=== PATIENT | female | born 1975 | race Caucasian/White ===

== ENCOUNTER 2019-11-03 09:30 | Emergency (ER) | payer OTHER ==
[~2019-11-03] VITALS: Ht 162.6 cm; Wt 59.0 kg
[~2019-11-03 09:30] MED LIST: ALBU90OI INH; AMOX500 PO; CLIN150 PO; CODGUAEL PO; CYCL10 PO; DOXY100 PO; HYDACE5 PO; LIDO700A20 TOP; LORA1 PO; OXYACE7.5T PO; PENVK500 PO; PHENA200 PO; Robaxin-750750 MG PO; SULTRIDS PO
[2019-11-03 10:59] LABS: BASOPHILS ABSOLUTE AUTO 0.08 K/mm3 (0.00-0.23); BASOPHILS PERCENT AUTO 1 % (0-2); EOSINOPHILS ABSOLUTE AUTO 0.14 K/mm3 (0.00-0.68); EOSINOPHILS PERCENT AUTO 2 % (0-6); Hemoglobin 12.5 g/dL (11.5-16.0); IMMATURE GRAN ABSOLUTE AUTO 0.05 K/mm3 (0.00-0.10); IMMATURE GRAN PERCENT AUTO 1 % (0-1); LYMPHOCYTES ABSOLUTE AUTO 2.76 K/mm3 (0.84-5.20); LYMPHOCYTES PERCENT AUTO 31 % (21-46); MONOCYTES PERCENT AUTO 10 % (4-13); Mean Corpuscular HGB 29.1 pg (26.0-34.0); Mean Corpuscular HGB Conc 32.1 g/dL (31.5-36.5); Mean Corpuscular Volume 91 fL (80-100); Mean Platelet Volume 9.9 fL (9.1-12.4); NEUTROPHILS PERCENT AUTO 56 % (41-73); Platelet Count 458 K/mm3 (150-400); RDW Coefficient Variation 14.6 % (11.7-14.2); RDW Standard Deviation 48.6 fL (35.1-46.3); White Blood Cell Count 9.03 K/mm3 (4.00-11.30)
[2019-11-03 11:11] LABS: Alanine Aminotransfer (ALT/SGP 12 U/L (12-78); Albumin/Globulin Ratio 0.7 (0.8-1.8); Alk Phos 139 U/L (50-136); Anion Gap 7 mmol/L (6-16); Aspartate Aminotrans (AST/SGOT 11 U/L (12-37); Bilirubin, Total 0.2 mg/dL (0.1-1.0); Blood Urea Nitrogen 10 mg/dL (8-24); Bun/Creatinine Ratio 16.3 (12.0-20.0); CO2, Blood 25 mmol/L (21-32); Calcium, Blood 8.7 mg/dL (8.5-10.1); Chloride, Blood 107 mmol/L (98-108); Creatinine, Blood 0.62 mg/dL (0.40-1.00); Globulin, Blood 4.1 g/dL (2.2-4.0); Glomerular Filtration Rate >60 (60-); Glucose, Blood 83 mg/dL (70-99); Potassium, Blood 3.8 mmol/L (3.5-5.5); Sodium, Blood 139 mmol/L (136-145); Total Protein, Blood 7.1 g/dL (6.4-8.2); Troponin I <0.015 ng/mL (0.000-0.040)
== END 2019-11-03 16:40 | disposition home or self-care (01) ==
LOC: ER 09:30
PROVIDERS: Emergency Medicine
DX: R07.89 Other chest pain (principal); F17.210 Nicotine dependence, cigarettes, uncomplicated
CPT/HCPCS: 36415; 80053; 84484; 85025; 93005; 93010; 99283-25; J1885

== ENCOUNTER 2019-11-18 10:32 | Emergency (ER) | payer OTHER ==
[~2019-11-18] VITALS: Ht 162.6 cm; Wt 56.7 kg
[2019-11-18 11:07] LABS: BASOPHILS ABSOLUTE AUTO 0.11 K/mm3 (0.00-0.23); BASOPHILS PERCENT AUTO 1 % (0-2); EOSINOPHILS ABSOLUTE AUTO 0.08 K/mm3 (0.00-0.68); EOSINOPHILS PERCENT AUTO 1 % (0-6); Hematocrit 40.6 % (33.0-51.0); Hemoglobin 13.4 g/dL (11.5-16.0); IMMATURE GRAN ABSOLUTE AUTO 0.09 K/mm3 (0.00-0.10); IMMATURE GRAN PERCENT AUTO 1 % (0-1); LYMPHOCYTES ABSOLUTE AUTO 2.96 K/mm3 (0.84-5.20); LYMPHOCYTES PERCENT AUTO 28 % (21-46); MONOCYTES ABSOLUTE AUTO 1.11 K/mm3 (0.16-1.47); MONOCYTES PERCENT AUTO 11 % (4-13); Mean Corpuscular HGB 29.5 pg (26.0-34.0); Mean Corpuscular Volume 89 fL (80-100); NEUTROPHILS ABSOLUTE AUTO 6.21 K/mm3 (1.96-9.15); NEUTROPHILS PERCENT AUTO 59 % (41-73); Platelet Count 470 K/mm3 (150-400); RDW Coefficient Variation 14.5 % (11.7-14.2); Red Blood Cell Count 4.54 M/mm3 (3.80-5.20); White Blood Cell Count 10.56 K/mm3 (4.00-11.30)
[2019-11-18 11:23] LABS: Alanine Aminotransfer (ALT/SGP 18 U/L (12-78); Albumin, Blood 3.8 g/dL (3.4-5.0); Albumin/Globulin Ratio 0.9 (0.8-1.8); Alk Phos 153 U/L (50-136); Anion Gap 5 mmol/L (6-16); Aspartate Aminotrans (AST/SGOT 15 U/L (12-37); Bilirubin, Total 0.3 mg/dL (0.1-1.0); Blood Urea Nitrogen 19 mg/dL (8-24); CO2, Blood 27 mmol/L (21-32); Calcium, Blood 9.5 mg/dL (8.5-10.1); Chloride, Blood 104 mmol/L (98-108); Globulin, Blood 4.2 g/dL (2.2-4.0); Glomerular Filtration Rate >60 (60-); Glucose, Blood 59 mg/dL (70-99); Potassium, Blood 3.8 mmol/L (3.5-5.5); Sodium, Blood 136 mmol/L (136-145); Troponin I <0.015 ng/mL (0.000-0.040)
== END 2019-11-18 11:57 | disposition home or self-care (01) ==
LOC: ER 10:32
PROVIDERS: Emergency Medicine
DX: R07.9 Chest pain, unspecified (principal); F17.210 Nicotine dependence, cigarettes, uncomplicated
CPT/HCPCS: 36415; 71046; 80053; 83690; 84484; 85025; 93005; 93010; 99285-25

== ENCOUNTER 2019-11-27 14:24 | Emergency (ER) | payer OTHER ==
[~2019-11-27] VITALS: Ht 162.6 cm; Wt 56.7 kg
[2019-11-27 15:02] LABS: Source, Urine Clean Catch
[2019-11-27 15:18] LABS: Appearance, Urine Clear (Clear); Bilirubin, Urine Neg (Neg); Blood, Urine 1+ (Neg); Color, Urine Yellow (P-Yellow); Glucose Qualitative, Urine Neg (Neg); Ketones, Urine Neg (Neg); Leukocyte Esterase, Urine 2+ (Neg); Nitrite, Urine Neg (Neg); Protein, Urine Neg (Neg); Urobilinogen, Urine NORM (Normal)
[2019-11-27 16:01] LABS: Bacteria Many /hpf; Squamous Epithelial Cells Mod /hpf (Few); White Blood Cells, Urine 25-50 /hpf (0-5)
[2019-11-27] MEDS ORDERED: CEPH500 PO (16:24)
[2019-11-28] MEDS ORDERED: Methocarbamol750 MG PO (20:44)
[2019-11-29] MEDS ORDERED: IBUP800 PO (15:56)
[2019-11-29] MEDS ORDERED: LIDO700A20 TOP (15:57)
[2019-11-29] MEDS ORDERED: OXAYDO5 MG PO (16:00)
== END 2019-11-27 16:37 | disposition home or self-care (01) ==
LOC: ER 14:24
PROVIDERS: Emergency Medicine
DX: N39.0 Urinary tract infection, site not specified (principal); F41.9 Anxiety disorder, unspecified; F17.210 Nicotine dependence, cigarettes, uncomplicated
CPT/HCPCS: 72080; 81001; 81025; 87077; 87086; 87186; 96372; 99283-25; A9270-GY; J1885

== ENCOUNTER 2019-11-29 20:36 | Observation (INO) | payer OTHER ==
[~2019-11-29] VITALS: Ht 162.6 cm; Wt 65.8 kg
[~2019-11-29 20:36] MED LIST changes: +CEPH500 PO; +IBUP800 PO; +Methocarbamol750 MG PO; +OXAYDO5 MG PO
--- NOTE | 2019-11-30 06:47 | NUR ---
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 She and her had come down here to help settle her mothers affairs as she had a couple months ago. Complaints of diffuse back pain on arrival, the patient did not want to take anything except Toradol. Offered Robaxin for Spasms, but patient denied need. She did take Toradol again this morning at 0600. frightened, but looking forward to getting some answers and heading forward with her spouses support.
--- NOTE | 2019-11-30 08:00 | NUR ---
PT AO X3. PLEASANT COOP WITH CARE. DENIES PAIN AT THIS TIME. HR REG, NO MURMER NOTED. NO TELE. LUNGS CLEAR, RESP EASY, UNLABORED. ON RA. BT X4 LAST BM YEST. VOIDS INDEPENNANTLY TO BATHROOM. OUT TO SMOKE OCC. NO NEW CONCERNS AT THIS TIME.
--- NOTE | 2019-11-30 16:43 | NUR ---
PT CONTINUES TO BE QUITE PLEASANT TODAY. HAS BEEN OUT TO SMOKE SEVERAL TIMES WITH S/O TODAY. DR MORRIS CONSULTED. HE HAS MADE ORDERS. BUT NOT SEEN DR TODAY OF YET. BED IN LOW POSITION, CALL LITE IN REACH, CALLS APPROP
--- NOTE | 2019-12-01 05:33 | NUR ---
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 Woke 2-3 times to bathroom and once to go out and smoke. Medicated at start and again at end of shift with one [place] and 30mg toradol for mid to low back pain. This morning, she was much more visibly painful when she woke up than when she went to sleep. Hoping to see Dr. Arceo this AM to know what the plan is for treatment.
--- NOTE | 2019-12-01 08:37 | NUR ---
in to see patient
[2019-12-01 11:26] LABS: International Normalized Ratio 0.95; Prothrombin Time Results 10.2 Sec (9.7-11.5)
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
--- NOTE | 2019-12-01 17:22 | NUR ---
ALERT. ORIENTED. INDEPENDENT IN ROOM. GOES OUT TO SMOKE ABOUT 4-5 TIMES SO FAR. STEADY GAIT. UNLABORED RESPIRATIONS. TALKED TO PATIENT THIS A.M. ABOUT WHAT COULD BE GOING ON AND THE FACT THAT SHE NEEDS A BIOPSY TO SEE EXACTLY IF SHE HAS MULITPLE MYLOMA OR SOMETHING ELSE. PATIENT AWARE BIOPSY RESULTS WILL PROBABLY TAKE ABOUT A WEEK OR SO TO COME BACK AND THEN SHE WILL F/U WITH . MEDICATED X ONCE FOR PAIN W/GOOD RESULTS. NO ACUTE CHANGES. WCTM
--- NOTE | 2019-12-01 19:27 | NUR ---
RECEIVED REPORT FROM EVIN CHANEL. PT JUST CAME BACK FROM SMOKING OUTSIDE. A/O. INDEPENDENT. WILL MONITOR AND PROVIDE CARE T/O SHIFT.
--- NOTE | 2019-12-01 20:57 | NUR ---
PT DENIES NEEDS AT THIS TIME. WILL MONITOR. CALL LT IN REACH.
--- NOTE | 2019-12-01 20:57 | NUR ---
REMOVED LIDOCAINE PATCH FROM MID BACK. CALL LT IN REACH.
--- NOTE | 2019-12-01 21:10 | NUR ---
PT BACK FROM SMOKING OUTSIDE.
--- NOTE | 2019-12-02 02:04 | NUR ---
PT RESTING QUIETLY. CALL LT IN REACH.
--- NOTE | 2019-12-02 04:19 | NUR ---
SHIFT SUMMARY: MEDICATED PT FOR / MID BACK AND SPINE PAIN WITH 1 5/325 MG NORCO AND 30 MG TORADOL WITH FAIR PAIN RELIEF. PT RESTED WELL. DENIED NAUSEA AND SOB. OUTSIDE TO SMOKE SEVERAL TIMES. CT BIOPSY OF BONE LESION TODAY AND THEN PLAN IS TO DISCHARGE HOME. NO ACUTE CHANGES. WILL CONTINUE TO MONITOR AND PROVIDE CARE UNTIL SHIFT REPORT.
[2019-12-02 08:10] LABS: IMMUNOGLOBULIN A, QN, SERUM 163 mg/dL (87-352); IMMUNOGLOBULIN G, QN, SERUM 829 mg/dL (586-1602); IMMUNOGLOBULIN M, QN, SERUM 69 mg/dL (26-217)
[2019-12-02] MEDS ORDERED: Norco 5-325 Ta1 EACH PO (10:52)
[2019-12-02] MEDS ORDERED: KETO10 PO (10:53)
--- NOTE | 2019-12-02 13:17 | NUR ---
PATIENT BACK FROM BIOPSY. WHEN RN WENT IN TO CHECK ON PATIENT A FEW MINUTES AFTER ARRIVING BACK, PATIENT NOT IN ROOM. POSSIBLY OUT TO SMOKE. WILL ATTEMPT TO SEE IF WE HAVE A CELL PHONE NUMBER.
--- NOTE | 2019-12-02 13:30 | NUR ---
PATIENT COMES BACK TO ROOM AFTER HAVING A SMOKE. BANDAID OVER BIOPSY AREA LOWER BACK IS DRY AND INTACT. REVIEW INSTRUCTIONS. AWARE HAS F/U APPT WITH ON SUNDAY. AWARE OFFICE WILL CALL HER WHEN RESULTS FROM BIOPSY ARE BACK. ANSWER ALL QUESTIONS. WALKED DOWN TO FRIENDS CAR BY CARE MANAGEMENT. STEADY GAIT. IV D'C NO SIGNS OF INFECTION.
[2019-12-03 14:11] LABS: A/G RATIO 1.3 (0.7-1.7); ALBUMIN 3.5 g/dL (2.9-4.4); ALPHA-1-GLOBULIN 0.3 g/dL (0.0-0.4); ALPHA-2-GLOBULIN 0.9 g/dL (0.4-1.0); BETA GLOBULIN 0.8 g/dL (0.7-1.3); GAMMA GLOBULIN 0.8 g/dL (0.4-1.8); GLOBULIN, TOTAL 2.7 g/dL (2.2-3.9); M-SPIKE Not Observed g/dL (Not Observed); PROTEIN, TOTAL, SERUM 6.2 g/dL (6.0-8.5)
[2019-12-03 14:11] LABS: A/G RATIO 1.3 (0.7-1.7); ALBUMIN 3.3 g/dL (2.9-4.4); ALPHA-1-GLOBULIN 0.3 g/dL (0.0-0.4); ALPHA-2-GLOBULIN 0.8 g/dL (0.4-1.0); BETA GLOBULIN 0.7 g/dL (0.7-1.3); GAMMA GLOBULIN 0.8 g/dL (0.4-1.8); GLOBULIN, TOTAL 2.6 g/dL (2.2-3.9); M-SPIKE Not Observed g/dL (Not Observed); PROTEIN, TOTAL, SERUM 5.9 g/dL (6.0-8.5)
[2019-12-03 15:11] LABS: A/G RATIO 1.2 (0.7-1.7); ALPHA-1-GLOBULIN 0.3 g/dL (0.0-0.4); ALPHA-2-GLOBULIN 0.8 g/dL (0.4-1.0); BETA GLOBULIN 0.7 g/dL (0.7-1.3); GAMMA GLOBULIN 0.7 g/dL (0.4-1.8); GLOBULIN, TOTAL 2.6 g/dL (2.2-3.9); IMMUNOGLOBULIN A, QN, SERUM 165 mg/dL (87-352); IMMUNOGLOBULIN G, QN, SERUM 815 mg/dL (586-1602); IMMUNOGLOBULIN M, QN, SERUM 69 mg/dL (26-217); M-SPIKE Not Observed g/dL (Not Observed); PROTEIN, TOTAL, SERUM 5.6 g/dL (6.0-8.5)
[2019-12-04 03:09] LABS: BETA-2 MICROGLOBULIN, SERUM 2.7 mg/L (0.6-2.4)
[2019-12-08 10:37] LABS: Performing Lab SYMBIODX; Test Name TISSUE BLOCK
== END 2019-12-02 13:37 | disposition home or self-care (01) ==
LOC: ER 20:36 → MEDS 20:37 → ENPENDDIS 12-02 10:36 → MEDS 12-02 13:37
PROVIDERS: Internal Medicine; Internal Medicine Hematology & Oncology; ADMIT Family Medicine
DX: M89.8X8 Other specified disorders of bone, other site (principal); J43.9 Emphysema, unspecified; M84.48XA Pathological fracture, other site, initial encounter for fracture; C80.1 Malignant (primary) neoplasm, unspecified; F17.210 Nicotine dependence, cigarettes, uncomplicated; F41.9 Anxiety disorder, unspecified; Z71.6 Tobacco abuse counseling; Z79.899 Other long term (current) drug therapy
CPT/HCPCS: 20225; 36415; 71260; 74177; 77012; 82232; 82784; 84165; 85610; 85730; 86334; 88305; 88311; 88342; 96374; 96376; 99284; A9270-GY; G0378; J1885; Q9967

== ENCOUNTER 2019-12-19 11:42 | Emergency (ER) | payer OTHER ==
[~2019-12-19] VITALS: Ht 162.6 cm; Wt 65.8 kg
[~2019-12-19 11:42] MED LIST changes: +IBU600 MG PO; +KETO10 PO; +Norco 5-325 Ta1 EACH PO
[2019-12-19] MEDS ORDERED: Norco 7.5-3251 EACH PO ×2 (16:04→17:30)
== END 2019-12-19 16:17 | disposition home or self-care (01) ==
LOC: ER 11:42
DX: C79.51 Secondary malignant neoplasm of bone (principal); F17.210 Nicotine dependence, cigarettes, uncomplicated; Z79.899 Other long term (current) drug therapy
CPT/HCPCS: 96372; 99283-25; J1885

== ENCOUNTER 2020-02-20 22:27 | Emergency (ER) | payer OTHER ==
[~2020-02-20] VITALS: Ht 162.6 cm; Wt 69.0 kg
[~2020-02-20 22:27] MED LIST changes: +Norco 7.5-3251 EACH PO
[2020-02-21] MEDS ORDERED: Percocet 10-321 EACH PO (00:52)
[2020-02-21] MEDS ORDERED: ONDA4ODT MM (00:52)
[2020-02-22] MEDS ORDERED: NARCAN4 M1 (10:13)
== END 2020-02-21 01:15 | disposition home or self-care (01) ==
LOC: ER 22:27
DX: G89.3 Neoplasm related pain (acute) (chronic) (principal); C79.51 Secondary malignant neoplasm of bone; C90.00 Multiple myeloma not having achieved remission; M25.552 Pain in left hip; F17.210 Nicotine dependence, cigarettes, uncomplicated
CPT/HCPCS: 99283; A9270; A9270-GY; J1170

== ENCOUNTER 2020-02-22 09:28 | Emergency (ER) | payer OTHER ==
[~2020-02-22] VITALS: Ht 162.6 cm; Wt 69.0 kg
[~2020-02-22 09:28] MED LIST changes: +ONDA4ODT MM; +Percocet 10-321 EACH PO
[2020-02-22] MEDS ORDERED: NARCAN4 M1 (10:13)
== END 2020-02-22 11:40 | disposition home or self-care (01) ==
LOC: ER 09:28
DX: M25.552 Pain in left hip (principal); C90.00 Multiple myeloma not having achieved remission; F41.9 Anxiety disorder, unspecified; F17.210 Nicotine dependence, cigarettes, uncomplicated; Z79.899 Other long term (current) drug therapy
CPT/HCPCS: 73502; 99283-25

== ENCOUNTER 2020-04-03 07:40 | Emergency (ER) | payer OTHER ==
[~2020-04-03] VITALS: Ht 162.6 cm; Wt 67.1 kg
[~2020-04-03 07:40] MED LIST changes: +NARCAN4 M1
[2020-04-03 10:10] LABS: Source, Urine Catheter
[2020-04-03 10:16] LABS: Appearance, Urine Clear (Clear); Bilirubin, Urine Neg (Neg); Blood, Urine 2+ (Neg); Color, Urine Yellow (P-Yellow); Glucose Qualitative, Urine Neg (Neg); Ketones, Urine 3+ (Neg); Leukocyte Esterase, Urine 2+ (Neg); Nitrite, Urine Pos (Neg); Protein, Urine 1+ (Neg); Urobilinogen, Urine NORM (Normal)
[2020-04-03 10:33] LABS: Bacteria Many /hpf; Red Blood Cells, Urine 0-2 /hpf (0-2); Squamous Epithelial Cells Mod /hpf (Few)
[2020-04-03 10:54] LABS: Influenza A, PCR Negative (NEGATIVE); Influenza B, PCR Negative (NEGATIVE); Resp Syncytial Virus, PCR Negative (NEGATIVE); SARS-Cov-2 (COVID-19) PCR, MMC Negative (NEGATIVE)
[2020-05-20] MEDS ORDERED: Robaxin750 MG PO (08:23)
[2020-05-20] MEDS ORDERED: IBUP800 PO (08:23)
[2020-05-20] MEDS ORDERED: FENTANYL1 EA10 TOP (08:23)
[2020-05-20] MEDS ORDERED: ROXICODONE5 MG PO (08:24)
[2020-05-20] MEDS ORDERED: PRED20 PO (08:26)
[2020-06-30] MEDS ORDERED: XARELTO15 MG PO (12:04)
== END 2020-04-03 11:41 | disposition short-term general hospital (02) ==
LOC: ER 07:40
PROVIDERS: Physician Assistant
DX: S72.032A Displaced midcervical fracture of left femur, initial encounter for closed fracture (principal); F17.210 Nicotine dependence, cigarettes, uncomplicated; Z20.822 Contact with and (suspected) exposure to COVID-19; X50.1XXA Overexertion from prolonged static or awkward postures, initial encounter; Y93.89 Activity, other specified
CPT/HCPCS: 0241U; 51702; 73502; 73600; 81001; 87077; 87086; 87186; 96374-59; 96375-59; 96376-59; 99285-25; J1170; J1885; J2405; J3010

== ENCOUNTER 2020-04-21 08:10 | Emergency (ER) | payer OTHER ==
[~2020-04-21] VITALS: Ht 162.6 cm; Wt 67.1 kg
[2020-05-20] MEDS ORDERED: Robaxin750 MG PO (08:23)
[2020-05-20] MEDS ORDERED: FENTANYL1 EA10 TOP (08:23)
[2020-05-20] MEDS ORDERED: IBUP800 PO (08:23)
[2020-05-20] MEDS ORDERED: ROXICODONE5 MG PO (08:24)
[2020-05-20] MEDS ORDERED: PRED20 PO (08:26)
[2020-06-30] MEDS ORDERED: XARELTO15 MG PO (12:04)
== END 2020-04-21 10:06 | disposition home or self-care (01) ==
LOC: ER 08:10
DX: M25.552 Pain in left hip (principal); M25.562 Pain in left knee; G89.29 Other chronic pain; Z96.642 Presence of left artificial hip joint; Z87.39 Personal history of other diseases of the musculoskeletal system and connective tissue; F17.210 Nicotine dependence, cigarettes, uncomplicated; Z79.899 Other long term (current) drug therapy; Z79.891 Long term (current) use of opiate analgesic
CPT/HCPCS: 99283

== ENCOUNTER 2020-04-30 23:00 | Emergency (ER) | payer OTHER ==
[~2020-04-30] VITALS: Ht 162.6 cm; Wt 67.1 kg
[2020-05-20] MEDS ORDERED: FENTANYL1 EA10 TOP (08:23)
[2020-05-20] MEDS ORDERED: IBUP800 PO (08:23)
[2020-05-20] MEDS ORDERED: Robaxin750 MG PO (08:23)
[2020-05-20] MEDS ORDERED: ROXICODONE5 MG PO (08:24)
[2020-05-20] MEDS ORDERED: PRED20 PO (08:26)
[2020-06-30] MEDS ORDERED: XARELTO15 MG PO (12:04)
== END 2020-05-01 00:59 | disposition home or self-care (01) ==
LOC: ER 23:00
DX: M25.551 Pain in right hip (principal); M25.552 Pain in left hip; F17.210 Nicotine dependence, cigarettes, uncomplicated
CPT/HCPCS: 73502; 99283-25; A9270

== ENCOUNTER 2020-05-21 06:59 | Day surgery (SDC) | payer OTHER ==
[~2020-05-21] VITALS: Ht 162.6 cm; Wt 61.8 kg
[~2020-05-21 06:59] MED LIST changes: +FENTANYL1 EA10 TOP; +PRED20 PO; +ROXICODONE5 MG PO; +Robaxin750 MG PO
[2020-05-21] MEDS ORDERED: ACET500 PO (07:51)
[2020-05-21] MEDS ORDERED: DOCU100 PO (07:51)
--- NOTE | 2020-05-21 08:18 | NUR ---
Surgical site prepped with 2% Chlorhexidine cloth wipe. History, Chart, Medications and Allergies reviewed before start of procedure.Lungs clear T/O to Auscultation. Patient confirms NPO status and agrees with scheduled surgery. ALL BELONINGS PLACED UNDER BED. PT W/C WILL BE KEPT IN STEP. PT HAS CALMED WITH EMOTIONAL SUPPORT, WARM BLANKETS AND A CALMING ENVIRONMENT.
--- NOTE | 2020-05-21 10:32 | NUR ---
PT STATES SHE WILL USE HOME MEDS FOR HIP PAIN WHEN SHE GETS HOME SHE HAS FENTYL PATCH DUE TO BE PLACED TODAY SHE HAD REMOVED OLDER ONE BEFORE SURGERY
--- NOTE | 2020-05-21 10:48 | NUR ---
Dressing to procedure site clean, dry, intact with no visible drainage, swelling, erythema or bruising noted. OFFERED FOOD AND FLUIDS.
--- NOTE | 2020-05-21 11:16 | NUR ---
Discharge instructions reviewed with patient. Patient verbalizes understanding. Copy given to patient to take home. Dressing to procedure site clean, dry, intact with no visible drainage, swelling, erythema or bruising noted. Patient States Post-Procedure ride home has been arranged. Discharged via wheelchair to private car for ride home. PROVIDED MEDIPORT INFORMATION TO PATIENT. VERBALIZES UNDERSTANDING. ALL BELONINGS RETURNED TO PATIENT.
--- NOTE | 2020-05-24 09:11 | NUR ---
05/24/20 0911 PapKevin bernard VERIFICATION: CORECTION OF STAFF
[2020-06-30] MEDS ORDERED: XARELTO15 MG PO (12:04)
== END 2020-05-21 22:46 | disposition home or self-care (01) ==
LOC: ORSCMMR 06:59 → ORD 08:30 → ORSCMMR 08:30
PROVIDERS: Surgery
PROC: 05HM33Z Insertion of Infusion Device into Right Internal Jugular Vein, Percutaneous Approach (ICD-10-PCS; principal; 2020-05-21 08:30)
PROC: B5131ZA Fluoroscopy of Right Jugular Veins using Low Osmolar Contrast, Guidance (ICD-10-PCS; principal; 2020-05-21 08:30)
DX: C83.38 Diffuse large B-cell lymphoma, lymph nodes of multiple sites (principal); I10 Essential (primary) hypertension; Z79.899 Other long term (current) drug therapy; F17.210 Nicotine dependence, cigarettes, uncomplicated
CPT/HCPCS: 77001; 93005; 93010; A9270; C1788; J0690; J1100; J1642; J2250; J2405; J2704; J3010; J7120

== ENCOUNTER 2020-06-30 09:56 | Emergency (ER) | payer OTHER ==
[~2020-06-30] VITALS: Ht 162.6 cm; Wt 62.6 kg
== END 2020-06-30 12:37 | disposition home or self-care (01) ==
LOC: VAS 09:56 → ER 09:56 → EDSTATUS 10:00 → VAS 10:00 → ER 12:37
DX: T80.1XXA Vascular complications following infusion, transfusion and therapeutic injection, initial encounter (principal); R22.1 Localized swelling, mass and lump, neck; F17.210 Nicotine dependence, cigarettes, uncomplicated; Z97.8 Presence of other specified devices; Z79.899 Other long term (current) drug therapy
CPT/HCPCS: 93971; 99283-25; A9270

== ENCOUNTER 2020-07-02 11:11 | Emergency (ER) | payer OTHER ==
[~2020-07-02] VITALS: Ht 162.6 cm; Wt 62.6 kg
[~2020-07-02 11:11] MED LIST changes: +ACET500 PO; +DOCU100 PO; +XARELTO15 MG PO
[2020-07-02 11:56] LABS: BASOPHILS PERCENT AUTO 2 % (0-2); EOSINOPHILS ABSOLUTE AUTO 0.13 K/mm3 (0.00-0.68); EOSINOPHILS PERCENT AUTO 2 % (0-6); Hematocrit 37.7 % (33.0-51.0); Hemoglobin 12.4 g/dL (11.5-16.0); IMMATURE GRAN ABSOLUTE AUTO 0.22 K/mm3 (0.00-0.10); IMMATURE GRAN PERCENT AUTO 3 % (0-1); LYMPHOCYTES ABSOLUTE AUTO 1.78 K/mm3 (0.84-5.20); LYMPHOCYTES PERCENT AUTO 21 % (21-46); MONOCYTES ABSOLUTE AUTO 1.12 K/mm3 (0.16-1.47); MONOCYTES PERCENT AUTO 13 % (4-13); Mean Corpuscular HGB 27.7 pg (26.0-34.0); Mean Corpuscular HGB Conc 32.9 g/dL (31.5-36.5); Mean Corpuscular Volume 84 fL (80-100); Mean Platelet Volume 9.8 fL (9.1-12.4); NEUTROPHILS PERCENT AUTO 59 % (41-73); Platelet Count 496 K/mm3 (150-400); RDW Coefficient Variation 18.7 % (11.7-14.2); RDW Standard Deviation 57.1 fL (35.1-46.3); Red Blood Cell Count 4.47 M/mm3 (3.80-5.20); White Blood Cell Count 8.45 K/mm3 (4.00-11.30)
[2020-07-02 12:14] LABS: Alanine Aminotransfer (ALT/SGP 12 U/L (12-78); Albumin, Blood 3.1 g/dL (3.4-5.0); Albumin/Globulin Ratio 0.7 (0.8-1.8); Alk Phos 122 U/L (50-136); Anion Gap 5 mmol/L (6-16); Aspartate Aminotrans (AST/SGOT 10 U/L (12-37); Bilirubin, Total 0.2 mg/dL (0.1-1.0); Blood Urea Nitrogen 6 mg/dL (8-24); Bun/Creatinine Ratio 9.8 (12.0-20.0); CO2, Blood 27 mmol/L (21-32); Calcium, Blood 9.1 mg/dL (8.5-10.1); Chloride, Blood 106 mmol/L (98-108); Creatinine, Blood 0.61 mg/dL (0.40-1.00); Globulin, Blood 4.3 g/dL (2.2-4.0); Glomerular Filtration Rate >60 (60-); Glucose, Blood 78 mg/dL (70-99); Sodium, Blood 138 mmol/L (136-145); Total Protein, Blood 7.4 g/dL (6.4-8.2)
[2020-07-02] MEDS ORDERED: XARELTO15 MG PO (15:05)
== END 2020-07-02 15:17 | disposition home or self-care (01) ==
LOC: ER 11:11
PROVIDERS: Physician Assistant
DX: I82.90 Acute embolism and thrombosis of unspecified vein (principal); F17.210 Nicotine dependence, cigarettes, uncomplicated; Z79.899 Other long term (current) drug therapy
CPT/HCPCS: 36415; 80053; 83605; 85025; 93005; 93010; 99283-25

== ENCOUNTER 2020-10-01 18:32 | Emergency (ER) | payer OTHER ==
[~2020-10-01] VITALS: Ht 162.6 cm; Wt 63.0 kg
[2020-10-01 19:02] LABS: BASOPHILS ABSOLUTE AUTO 0.15 K/mm3 (0.00-0.23); BASOPHILS PERCENT AUTO 1 % (0-2); EOSINOPHILS ABSOLUTE AUTO 0.25 K/mm3 (0.00-0.68); EOSINOPHILS PERCENT AUTO 2 % (0-6); Hematocrit 35.1 % (33.0-51.0); Hemoglobin 11.5 g/dL (11.5-16.0); IMMATURE GRAN ABSOLUTE AUTO 0.18 K/mm3 (0.00-0.10); IMMATURE GRAN PERCENT AUTO 1 % (0-1); LYMPHOCYTES ABSOLUTE AUTO 1.55 K/mm3 (0.84-5.20); LYMPHOCYTES PERCENT AUTO 12 % (21-46); MONOCYTES ABSOLUTE AUTO 1.51 K/mm3 (0.16-1.47); MONOCYTES PERCENT AUTO 12 % (4-13); Mean Corpuscular HGB 30.5 pg (26.0-34.0); Mean Corpuscular HGB Conc 32.8 g/dL (31.5-36.5); Mean Corpuscular Volume 93 fL (80-100); Mean Platelet Volume 9.6 fL (9.1-12.4); NEUTROPHILS ABSOLUTE AUTO 9.19 K/mm3 (1.96-9.15); NEUTROPHILS PERCENT AUTO 72 % (41-73); Platelet Count 463 K/mm3 (150-400); RDW Coefficient Variation 15.6 % (11.7-14.2); RDW Standard Deviation 52.8 fL (35.1-46.3); Red Blood Cell Count 3.77 M/mm3 (3.80-5.20); White Blood Cell Count 12.83 K/mm3 (4.00-11.30)
[2020-10-01 19:45] LABS: Alanine Aminotransfer (ALT/SGP 19 U/L (12-78); Albumin, Blood 3.3 g/dL (3.4-5.0); Albumin/Globulin Ratio 0.9 (0.8-1.8); Alk Phos 101 U/L (50-136); Anion Gap 2 mmol/L (6-16); Aspartate Aminotrans (AST/SGOT 15 U/L (12-37); Bilirubin, Total 0.2 mg/dL (0.1-1.0); Blood Urea Nitrogen 7 mg/dL (8-24); Bun/Creatinine Ratio 11.5 (12.0-20.0); CO2, Blood 31 mmol/L (21-32); Chloride, Blood 105 mmol/L (98-108); Creatinine, Blood 0.61 mg/dL (0.40-1.00); Globulin, Blood 3.8 g/dL (2.2-4.0); Glomerular Filtration Rate >60 (60-); Glucose, Blood 96 mg/dL (70-99); Potassium, Blood 4.2 mmol/L (3.5-5.5); Sodium, Blood 138 mmol/L (136-145); Total Protein, Blood 7.1 g/dL (6.4-8.2)
[2020-10-01] MEDS ORDERED: XARELTO20 M1 PO (20:15)
[2020-10-01 20:49] LABS: International Normalized Ratio 0.92
[2020-10-01] MEDS ORDERED: CEPH500 PO (21:45)
[2020-10-01] MEDS ORDERED: SULTRIDS PO (21:45)
== END 2020-10-01 22:21 | disposition home or self-care (01) ==
LOC: ER 18:32
PROVIDERS: Physician Assistant
DX: L03.317 Cellulitis of buttock (principal)
CPT/HCPCS: 36415; 80053; 83605; 85025; 85610; 93005; 93010; 96365; 99283-25; A9270; J0696

== ENCOUNTER → 2020-11-08 | Outpatient (CLI) | payer OTHER ==
[~2020-11-08] MED LIST changes: +XARELTO20 M1 PO
[2020-11-09 10:32] LABS: Candida species (DNA Probe) Negative (NEGATIVE); G. vaginalis (DNA Probe) Negative (NEGATIVE); T. vaginalis (DNA Probe) Negative (NEGATIVE)
== END | disposition home or self-care (01) ==
LOC: LAB 11:15 → LAB SHORT 11:15
PROVIDERS: Student in an Organized Health Care Education/Training Program
DX: N89.8 Other specified noninflammatory disorders of vagina (principal)
CPT/HCPCS: 87480; 87510; 87660

== ENCOUNTER 2021-08-06 02:32 | Emergency (ER) | payer OTHER ==
[~2021-08-06] VITALS: Ht 162.6 cm; Wt 62.6 kg
== END 2021-08-06 03:38 | disposition home or self-care (01) ==
LOC: ER 02:32
DX: G89.3 Neoplasm related pain (acute) (chronic) (principal); C90.00 Multiple myeloma not having achieved remission; M79.2 Neuralgia and neuritis, unspecified; F17.210 Nicotine dependence, cigarettes, uncomplicated
CPT/HCPCS: J1170

== ENCOUNTER 2021-09-20 20:06 | Emergency (ER) | payer OTHER ==
[~2021-09-20] VITALS: Ht 162.6 cm; Wt 66.2 kg
[2021-09-20] MEDS ORDERED: Naprosyn500 MG PO (21:20)
== END 2021-09-20 21:39 | disposition home or self-care (01) ==
LOC: ER 20:06
DX: G62.9 Polyneuropathy, unspecified (principal); Z79.899 Other long term (current) drug therapy; Z79.01 Long term (current) use of anticoagulants
CPT/HCPCS: J1885

== ENCOUNTER 2022-02-09 19:34 | Emergency (ER) | payer OTHER ==
[~2022-02-09] VITALS: Ht 160 cm; Wt 63.8 kg
[~2022-02-09 19:34] MED LIST changes: +Naprosyn500 MG PO
== END 2022-02-09 22:53 | disposition home or self-care (01) ==
LOC: ER 19:34
DX: M25.552 Pain in left hip (principal); M79.632 Pain in left forearm; F17.210 Nicotine dependence, cigarettes, uncomplicated; Z79.899 Other long term (current) drug therapy; Z96.642 Presence of left artificial hip joint; W01.0XXA Fall on same level from slipping, tripping and stumbling without subsequent striking against object, initial encounter
CPT/HCPCS: 73090; 73502; A9270